=== PATIENT | male | born 1970 | race Caucasian/White ===

== ENCOUNTER → 2021-08-09 | Outpatient (CLI) | payer OTHER ==
--- NOTE | 2021-08-09 09:13 | REP ---
INDICATION: PAIN COMPARISON: None. TECHNIQUE: Five views of bilateral knees. FINDINGS: There is no evidence of acute fracture, dislocation, or intrinsic bone disease.The right knee demonstrates moderate medial joint space narrowing and subchondral sclerosis. There is moderate spurring of the superior pole of the patella. There is moderate spurring of the lateral patellar facet. Left knee demonstrates mild medial and lateral joint space narrowing, with mild subchondral sclerosis. There is moderate spurring of the superior pole of patella. There is an unfused ossicle at the anterior tibial tubercle. There is mild spurring of the lateral patellar facet. IMPRESSION: No fracture or dislocation. Degenerative changes as above. <Electronically signed by Clyde Higginbotham > 08/09/21 [id number]
== END ==
LOC: M WUC 08:16
PROVIDERS: ATTEND Nurse Practitioner Family
DX: M25.561 Pain in right knee (principal); M25.562 Pain in left knee

== ENCOUNTER → 2021-12-29 | Outpatient (REF) | payer OTHER | LOC: M SFHCLERA 15:31 | PROVIDERS: ATTEND Nurse Practitioner Family | DX: R05.9 Cough, unspecified (principal) ==

== ENCOUNTER 2022-02-26 12:50 | Emergency (ER) | payer OTHER ==
[~2022-02-26] VITALS: Ht 182.9 cm; Wt 161.8 kg
[2022-02-26] MEDS ORDERED: KETO10TAB PO (16:40)
[2022-02-26] MEDS ORDERED: CLEO300C2 PO (16:40)
[2022-02-26 16:55] VITALS: BP 137/92
== END 2022-02-26 16:58 | disposition home or self-care (01) ==
LOC: M ED 12:50
DX: K04.7 Periapical abscess without sinus (principal); L03.211 Cellulitis of face; E66.9 Obesity, unspecified; Z88.0 Allergy status to penicillin

== ENCOUNTER 2022-02-28 15:54 | Emergency (ER) | payer OTHER ==
[~2022-02-28] VITALS: Ht 182.9 cm; Wt 160.8 kg
[~2022-02-28 15:54] MED LIST: CLEO300C2 PO; KETO10TAB PO
[2022-02-28] MEDS ORDERED: CLEO150C PO (21:34)
[2022-02-28] MEDS ORDERED: DECA4TAB PO (21:34)
[2022-02-28 21:38] VITALS: BP 150/98
== END 2022-02-28 21:44 | disposition home or self-care (01) ==
LOC: M ED 15:54
DX: L03.211 Cellulitis of face (principal); K04.7 Periapical abscess without sinus; Z88.1 Allergy status to other antibiotic agents; Z79.899 Other long term (current) drug therapy